=== PATIENT | female | born 1980 | race Two or more races ===

== ENCOUNTER 2023-05-29 18:14 | Emergency (ER) | payer OTHER ==
[~2023-05-29] VITALS: Ht 165.1 cm; Wt 91.0 kg
[2023-05-29 19:22] VITALS: BP 110/75; PULSE 85; RESP 18; O2SAT 100
[2023-05-29] MEDS ORDERED: HYDROcodone-ACET 5/325MG TAB PO ONE ×2 (22:45→23:30)
[2023-05-29] MEDS ORDERED: HYDROcodone-ACET 5/325MG TAB ONE (23:44)
[2023-05-30] MEDS ORDERED: HYDR-4902 PO (00:55)
== END 2023-05-30 06:16 | disposition home or self-care (01) ==
LOC: EDBD 18:14 → ER 18:14
DX: S13.9XXA Sprain of joints and ligaments of unspecified parts of neck, initial encounter (principal); S33.5XXA Sprain of ligaments of lumbar spine, initial encounter; S83.91XA Sprain of unspecified site of right knee, initial encounter; S20.219A Contusion of unspecified front wall of thorax, initial encounter; S30.1XXA Contusion of abdominal wall, initial encounter; K80.20 Calculus of gallbladder without cholecystitis without obstruction; K46.9 Unspecified abdominal hernia without obstruction or gangrene; R59.0 Localized enlarged lymph nodes; E04.9 Nontoxic goiter, unspecified; V49.9XXA Car occupant (driver) (passenger) injured in unspecified traffic accident, initial encounter; Y93.89 Activity, other specified; Y92.410 Unspecified street and highway as the place of occurrence of the external cause; Y99.8 Other external cause status
CPT/HCPCS: 70450; 71250; 72125; 73562; 74176